=== PATIENT | female | born 1985 | race Hispanic/Latino ===

== ENCOUNTER 2018-09-19 15:24 | Emergency (ER) | payer OTHER ==
[2018-09-19 16:38] LABS: BASOPHILS % (AUTO) 0.9 % (0.0-5.0); EOSINOPHILS % (AUTO) 0.5 % (0.0-8.0); LYMPHOCYTES % (AUTO) 19.7 % (21.0-51.0); MEAN CORPUSCULAR HEMOGLOBIN 28.1 pg (27.0-33.0); MEAN CORPUSCULAR HGB CONC 33.5 g/dL (32.0-36.0); MEAN CORPUSCULAR VOLUME 83.7 fL (79-99); NEUTROPHILS % (AUTO) 74.9 % (40.0-77.0); NUCLEATED RED BLOOD CELLS 0.1 % (0.0-0.19); PLATELET COUNT (AUTO) 261 K/uL (130-400); RED BLOOD CELL COUNT(AUTO) 4.67 MIL/uL (4.00-5.50); WHITE BLOOD COUNT (AUTO) 7.2 K/uL (4.8-10.8)
[2018-09-19 16:42] LABS: APPEARANCE,URINE Cloudy (CLEAR); BILIRUBIN,URINE Negative (NEGATIVE); COLOR,URINE Yellow (YELLOW); GLUCOSE, URINE (UA) Negative (NEGATIVE); KETONES,URINE 40 mg/dL (NEGATIVE); LEUKOCYTE ESTERASE ,URINE Negative (NEGATIVE); NITRATE,URINE Negative (NEGATIVE); OCCULT BLOOD,URINE Negative (NEGATIVE); PROTEIN,URINE Negative (NEGATIVE); UROBILINOGEN,URINE 0.2 mg/dL (0.2-1.0)
[2018-09-19 16:49] LABS: BACTERIA,URINE Few /HPF (None Seen); MUCUS,URINE Few LPF (None Seen); RBC,URINE None Seen /HPF (0-1); SQUAMOUS EPITHELIAL CELL,UR 0-2 /HPF (0-2)
[2018-09-19 16:57] LABS: CREATININE 0.7 mg/dL (0.5-1.5); POTASSIUM 3.4 mmol/L (3.5-5.1)
== END 2018-09-19 18:34 | disposition home or self-care (01) ==
LOC: EDH 15:24
DX: N93.9 Abnormal uterine and vaginal bleeding, unspecified (principal); R53.1 Weakness; R10.9 Unspecified abdominal pain; G43.909 Migraine, unspecified, not intractable, without status migrainosus; Z88.5 Allergy status to narcotic agent; Z90.49 Acquired absence of other specified parts of digestive tract; Z88.8 Allergy status to other drugs, medicaments and biological substances
CPT/HCPCS: 36415; 80048; 81001; 84702; 85025; 86900; 86901

== ENCOUNTER 2022-10-21 18:24 | Inpatient (IN) | payer OTHER ==
[~2022-10-21] VITALS: Ht 160 cm; Wt 52.2 kg
[2022-10-21 19:02] LABS: BASOPHILS % (AUTO) 0.5 % (0.0-5.0); EOSINOPHILS % (AUTO) 0.2 % (0.0-8.0); HEMATOCRIT 43.8 % (36-48); LYMPHOCYTES % (AUTO) 10.2 % (21.0-51.0); MEAN CORPUSCULAR HEMOGLOBIN 27.3 pg (27.0-33.0); MEAN CORPUSCULAR VOLUME 85.5 fL (79-99); MONOCYTES % (AUTO) 8.7 % (3.0-13.0); PLATELET COUNT (AUTO) 338 K/uL (130-400); RED BLOOD CELL COUNT(AUTO) 5.12 MIL/uL (4.00-5.50); RED CELL DISTRIBUTION WIDTH 13.7 % (11.0-15.5); WHITE BLOOD COUNT (AUTO) 12.1 K/uL (4.8-10.8)
[2022-10-21 19:27] LABS: CARBON DIOXIDE 22 mmol/L (21-32); CHLORIDE 91 mmol/L (101-111); CREATININE 0.8 mg/dL (0.5-1.5); GLOMERULAR FILTR. RATE CALC 97 mL/min (>90); GLUCOSE,RANDOM 85 mg/dL (70-105); POTASSIUM 3.2 mmol/L (3.5-5.1); SODIUM SERUM 128 mmol/L (136-145); UREA NITROGEN, BLOOD 9 mg/dL (7-18)
[2022-10-21 19:28] LABS: APPEARANCE,URINE CLOUDY (CLEAR); BILIRUBIN,URINE NEGATIVE (NEGATIVE); COLOR,URINE YELLOW (YELLOW); GLUCOSE, URINE (UA) NEGATIVE (NEGATIVE); KETONES,URINE 150 mg/dL (NEGATIVE); LEUKOCYTE ESTERASE ,URINE 500 Leu/uL (NEGATIVE); NITRATE,URINE NEGATIVE (NEGATIVE); OCCULT BLOOD,URINE SMALL (NEGATIVE); PROTEIN,URINE 70 mg/dL (NEGATIVE); UROBILINOGEN,URINE 0.2 mg/dL (0.2-1.0)
[2022-10-21 19:32] LABS: HCG,QUALITATIVE URINE NEGATIVE (NEGATIVE)
[2022-10-21 19:38] LABS: BACTERIA,URINE MOD /HPF (None Seen); MUCUS,URINE MOD LPF (None Seen); SQUAMOUS EPITHELIAL CELL,UR FEW /HPF (0-2); WBC,URINE TNTC /HPF (0-1)
[2022-10-21 19:38] LABS: ALANINE AMINOTRANSFERASE 24 U/L (12-78); ALBUMIN 3.8 g/dL (3.5-5.0); ASPARTATE AMINOTRANSFERASE 13 U/L (10-37); HCG,QUANTITATIVE 1 mIU/mL (0-5); TOTAL PROTEIN, SERUM 9.4 g/dL (6.0-8.3)
[2022-10-21 19:42] LABS: LIPASE < 50 U/L (114-286)
[2022-10-21] MEDS ORDERED: CEFTRIAXONE 2GM VIAL IVPB ONE (20:00)
[2022-10-21] MEDS ORDERED: FAMOTIDINE 20MG VIAL IV ONE (20:00)
[2022-10-21] MEDS ORDERED: KETOROLAC 15MG/ML VIAL (15MG/ML) IV ONE (20:00)
[2022-10-21] MEDS ORDERED: POTASSIUM BICARB/CIT AC 25 MEQ TABLET.EFF PO ONE (20:00)
[2022-10-21] MEDS ORDERED: ACETAMINOPHEN 500 MG TABLET PO ONE (20:00)
[2022-10-21] MEDS ORDERED: 0.9%NACL 1000ML 1,000 ML IV SCH (20:00)
[2022-10-21] MEDS ORDERED: POTASSIUM CHLORIDE 20MEQ/100ML 100 ML IV PRN (23:00)
[2022-10-21] MEDS ORDERED: HYDROMORPHONE 1 MG INJ IV PRN (23:00)
[2022-10-21] MEDS ORDERED: POTASSIUM CHLORIDE 10% ELIXIR 20 MEQ/15 ML UDCUP PO PRN (23:00)
[2022-10-21] MEDS ORDERED: LACTATED RINGERS 1000ML 1,572 ML IV ONE (23:00)
[2022-10-21] MEDS ORDERED: MAGNESIUM 2GM PREMIX 50ML 50 ML IV PRN (23:00)
[2022-10-21] MEDS ORDERED: ACETAMINOPHEN 325 MG TAB PO PRN (23:00)
[2022-10-22] MEDS: HYDROCODONE/ACETAMINOPHEN 5/325 MG TAB PO PRN ×2 (01:48→13:24)
[2022-10-22] MEDS: ZOSYN 3.375GM+NS 50ML 50 ML IVPB SCH ×3 (06:09→20:57)
[2022-10-22] MEDS: ACETAMINOPHEN 325 MG TAB PO PRN ×3 (07:52→20:13)
[2022-10-22 08:14] LABS: BASOPHILS % (AUTO) 0.5 % (0.0-5.0); EOSINOPHILS % (AUTO) 0.7 % (0.0-8.0); HEMATOCRIT 36.1 % (36-48); LYMPHOCYTES % (AUTO) 15.1 % (21.0-51.0); MEAN CORPUSCULAR HEMOGLOBIN 27.2 pg (27.0-33.0); MEAN CORPUSCULAR HGB CONC 31.3 g/dL (32.0-36.0); MONOCYTES % (AUTO) 10.5 % (3.0-13.0); NEUTROPHILS % (AUTO) 72.6 % (40.0-77.0); PLATELET COUNT (AUTO) 239 K/uL (130-400); RED BLOOD CELL COUNT(AUTO) 4.15 MIL/uL (4.00-5.50); RED CELL DISTRIBUTION WIDTH 13.8 % (11.0-15.5); WHITE BLOOD COUNT (AUTO) 8.7 K/uL (4.8-10.8)
[2022-10-22 08:26] LABS: CREATININE 0.6 mg/dL (0.5-1.5); MAGNESIUM 1.7 mg/dL (1.80-2.40); PHOSPHORUS 2.5 mg/dL (2.5-4.9); POTASSIUM 3.7 mmol/L (3.5-5.1)
[2022-10-22] MEDS: FAMOTIDINE 20MG TAB PO SCH ×2 (09:04→20:57)
[2022-10-22] MEDS: ENOXAPARIN SODIUM 40 MG/0.4 ML SYRINGE SQ SCH (09:04)
[2022-10-22] MEDS ORDERED: TAMS-1 PO (16:03)
[2022-10-22] MEDS ORDERED: TRIA1TAB3 PO (16:03)
[2022-10-22] MEDS ORDERED: CLOP75TA32 PO (16:03)
[2022-10-22] MEDS ORDERED: TADA5TAB13 PO (16:03)
[2022-10-22] MEDS: ONDANSETRON 4MG INJ IV PRN (20:11)
[2022-10-23] MEDS: HYDROCODONE/ACETAMINOPHEN 5/325 MG TAB PO PRN ×4 (00:51→21:12)
[2022-10-23] MEDS: ZOSYN 3.375GM+NS 50ML 50 ML IVPB SCH ×3 (05:12→20:33)
[2022-10-23] MEDS: FAMOTIDINE 20MG TAB PO SCH ×2 (08:22→20:33)
[2022-10-23] MEDS: ENOXAPARIN SODIUM 40 MG/0.4 ML SYRINGE SQ SCH (08:24)
[2022-10-23 08:56] LABS: ABG BASE EXCESS -3.8 mmol/L (-2.0-3.0); ABG HCO3 18.3 mmol/L (21.0-28.0); ABG OXYGEN SATURATION 94.7 % (95.0-99.0); ABG PCO2 27 mmHg (32-45)
[2022-10-23 11:10] VITALS: BP 104/65
[2022-10-23 16:00] VITALS: BP 97/60
[2022-10-23 19:00] VITALS: BP 98/64
[2022-10-23] MEDS: KCL 20 MEQ ERTAB PO PRN (20:40)
[2022-10-23 23:42] VITALS: BP 103/61
[2022-10-24] MEDS: HYDROCODONE/ACETAMINOPHEN 5/325 MG TAB PO PRN (02:25)
[2022-10-24 04:00] VITALS: BP 100/61
[2022-10-24] MEDS: ZOSYN 3.375GM+NS 50ML 50 ML IVPB SCH ×2 (04:44→13:24)
[2022-10-24] MEDS: ONDANSETRON 4MG INJ IV PRN (04:48)
[2022-10-24] MEDS: KCL 20 MEQ ERTAB PO PRN (05:01)
[2022-10-24 07:38] VITALS: BP 90/55
[2022-10-24] MEDS: FAMOTIDINE 20MG TAB PO SCH (08:33)
[2022-10-24] MEDS: ENOXAPARIN SODIUM 40 MG/0.4 ML SYRINGE SQ SCH (08:33)
[2022-10-24 12:00] VITALS: BP 96/60
[2022-10-24] MEDS ORDERED: IBUP-2077 PO (15:24)
[2022-10-24] MEDS ORDERED: ONDA8TAB12 PO (15:24)
[2022-10-24] MEDS ORDERED: CEFU500T67 PO (15:24)
[2022-10-24 15:52] LABS: EOSINOPHILS % (AUTO) 4.5 % (0.0-8.0); HEMATOCRIT 38.5 % (36-48); LYMPHOCYTES % (AUTO) 36.2 % (21.0-51.0); MEAN CORPUSCULAR HEMOGLOBIN 27.4 pg (27.0-33.0); MEAN CORPUSCULAR HGB CONC 30.6 g/dL (32.0-36.0); MEAN CORPUSCULAR VOLUME 89.3 fL (79-99); MONOCYTES % (AUTO) 17.6 % (3.0-13.0); NEUTROPHILS % (AUTO) 39.2 % (40.0-77.0); PLATELET COUNT (AUTO) 284 K/uL (130-400); RED BLOOD CELL COUNT(AUTO) 4.31 MIL/uL (4.00-5.50); RED CELL DISTRIBUTION WIDTH 13.7 % (11.0-15.5)
[2022-10-24 16:00] VITALS: BP 99/64
[2022-10-24 16:07] LABS: CREATININE 0.6 mg/dL (0.5-1.5); POTASSIUM 3.8 mmol/L (3.5-5.1)
== END 2022-10-24 18:05 | disposition home or self-care (01) | DRG 872 ==
LOC: EDH 18:24 → EDHIP 18:25 → 3AH 10-23 11:10
PROVIDERS: ADMIT Internal Medicine; ATTEND Internal Medicine
DX: A41.9 Sepsis, unspecified organism (principal); N39.0 Urinary tract infection, site not specified; E87.1 Hypo-osmolality and hyponatremia; Z16.24 Resistance to multiple antibiotics; Z20.822 Contact with and (suspected) exposure to COVID-19; E87.6 Hypokalemia; J02.0 Streptococcal pharyngitis; B96.20 Unspecified Escherichia coli [E. coli] as the cause of diseases classified elsewhere; E86.1 Hypovolemia; F14.90 Cocaine use, unspecified, uncomplicated; F17.210 Nicotine dependence, cigarettes, uncomplicated
CPT/HCPCS: 36415; 36600; 71045; 74176; 76770; 80048; 80053; 81001; 81025; 82803; 83605; 83690; 83735; 84100; 84132; 84145; 84702; 85025; 87040; 87077; 87088; 87186; 87635; 87804; 87880; 93005; C9803; G0378; J0696; J1170; J1650; J1885; J2405; J2543; J3475; J3490; J7030; J7120